=== PATIENT | male | born 1955 | race Two or more races ===

== ENCOUNTER 2019-02-20 06:10 | Day surgery (SDC) | payer OTHER ==
[~2019-02-20 06:10] MED LIST: AMILODIPINE PO; ASPIRIN81 M1 PO; ATORVASTATIN CA40 MG PO; CLOPIDOGREL BIS75 MG PO; METROPOLOL PO; TIROSINT75 MCG PO
[2019-02-20] MEDS ORDERED: NEURONTIN300 MG PO (13:14)
[2019-02-20] MEDS ORDERED: PERCOCET 5-3251 EACH PO (13:15)
[2019-02-20] MEDS ORDERED: RECTICARE30 GM TOP (13:15)
== END 2019-02-20 16:10 | disposition home or self-care (01) ==
LOC: CIR.AMB 06:10
DX: K64.8 Other hemorrhoids (principal); K64.4 Residual hemorrhoidal skin tags